=== PATIENT | female | born 1965 | race Two or more races ===

== ENCOUNTER 2016-03-27 18:01 | Emergency (ER) | payer SELFPAY ==
[~2016-03-27] VITALS: Ht 157.5 cm; Wt 86.2 kg
[2016-03-27] MEDS ORDERED: ATIVAN2 MG ORAL (18:13)
[2016-03-27] MEDS ORDERED: Dicyclomine HCl 10mg/5ml oral soln ORAL ONE (18:30)
[2016-03-27] MEDS ORDERED: Mylanta II UD 30ml ORAL ONE (18:30)
[2016-03-27] MEDS ORDERED: Metoclopramide 10mg/2ml Inj IVP ONE (18:30)
[2016-03-27] MEDS ORDERED: Lidocaine 2% Visc 15ml soln ORAL ONE (18:30)
[2016-03-27] MEDS ORDERED: Morphine Sulfate 2mg/ml Inj IVP ONE (18:30)
--- NOTE | 2016-03-27 19:06 | Emergency Room Report ---
History of Present Illness General Chief Complaint: Abdominal Pain Source: Patient Present Illness HPI 50-year-old female complains of abdominal pain for 2 days. Associated symptoms include nausea, vomiting, bloating, and epigastric pain. Patient states that she was eating yogurt just prior to the onset of symptoms which began approximately one to 2 hours after eating her food. States that her recent pain became exacerbated over the past 1 hour and is currently 9/10 and located in epigastric region w/o radiation. Patient states that there are no provoking or relieving factors has not tried any home medications. Patient has history of cholecystectomy in the past and a but no recent surgeries. Patient denies any trauma or flulike symptoms. Denies any current f/c/d, back pain, neck pain, hx of hernia, DM, GERD, ETOH use, photophobia, phonophobia, CP , SOB or headache. Allergies: Coded Allergies: No Known Allergies (Unverified , 03/27/16) Patient History Limited by: language barrier Past Medical History: see triage record Past Surgical History: bridger, Pertinent Family History: none Now: No : 5 Para: 5 Immunizations: UTD Reviewed Nursing Documentation: PMH: Agreed, PSxH: Agreed Nursing Documentation-PMH Past Medical History: No Stated History Review of Systems All Other Systems: negative except mentioned in HPI Physical Exam Vital Signs Date Time Temp Pulse Resp B/P Pulse Ox O2 Delivery O2 Flow Rate FiO2 03/27/16 18:08 98.1 64 16 166/82 100 Room Air Sp02 EP Interpretation: reviewed, normal General Appearance: alert, GCS 15, non-toxic, obese, other - obvious pain Head: normocephalic, atraumatic Eyes: bilateral eye PERRL, bilateral eye normal inspection ENT: hearing grossly normal, normal pharynx, no angioedema, normal voice Neck: full range of motion, supple/symm/no masses Respiratory: chest non-tender, lungs clear, normal breath sounds, speaking full sentences Cardiovascular #1: regular rate, rhythm, no edema Gastrointestinal: soft, non-distended, no guarding, no rebound, abnormal bowel sounds - hyperactive, tenderness - RUQ and epigastric, overweight Rectal: deferred Genitourinary: no CVA tenderness Musculoskeletal: back normal, gait/station normal, normal range of motion, non- tender Neurologic: alert, oriented x3, responsive, motor strength/tone normal, sensory intact, speech normal Psychiatric: judgement/insight normal, memory normal, mood/affect normal, no suicidal/homicidal ideation Skin: normal color, no rash, warm/dry, well hydrated Lymphatic: no adenopathy Medical Decision Making PA Attestation Dr. Bain is my supervising physician with whom patient management has been discussed with. Diagnostic Impression: Primary Impression: Epigastric abdominal pain ER Course Pt. presents to the ED c/o abdominal pain Ddx considered but are not limited to appendicitis, diverticulitis, gastroenteritis, abdominal hernia, pancreatitis, cholecystitis, nephrolithiasis , and ovarian torsion. Vital signs: are WNL, pt. is afebrile H&PE are most consistent with epigastric pain ORDERS: CBC, CMP, UA, Lipase ED INTERVENTIONS: Morhpine 2mg, 1L NS Bolus, GI Cocktail, . DISCHARGE: At this time pt. is stable for d/c to home. Patient states she is currently asymptomatic after ED interventions. Will provide printed patient care instructions, and any necessary prescriptions. Care plan and follow up instructions have been discussed with the patient prior to discharge. Laboratory Tests Test 03/27/16 18:34 White Blood Count 8.3 K/UL (4.8-10.8) Red Blood Count 5.15 M/UL (4.20-5.40) Hemoglobin 14.1 G/DL (12.0-16.0) Hematocrit 44.5 % (37.0-47.0) Mean Corpuscular Volume 86 FL (80-99) Mean Corpuscular Hemoglobin 27.3 PG (27.0-31.0) Mean Corpuscular Hemoglobin Concent 31.7 G/DL (32.0-36.0) L Red Cell Distribution Width 13.7 % (11.6-14.8) Platelet Count 292 K/UL (150-450) Mean Platelet Volume 6.6 FL (6.5-10.1) Neutrophils (%) (Auto) 61.9 % (45.0-75.0) Lymphocytes (%) (Auto) 29.5 % (20.0-45.0) Monocytes (%) (Auto) 6.9 % (1.0-10.0) Eosinophils (%) (Auto) 1.3 % (0.0-3.0) Basophils (%) (Auto) 0.5 % (0.0-2.0) Urine Color Yellow Urine Appearance Clear Urine pH 5 (4.5-8.0) Urine Specific [place] 1.030 (1.005-1.035) Urine Protein Negative (NEGATIVE) Urine Glucose (UA) Negative (NEGATIVE) Urine Ketones Negative (NEGATIVE) Urine Occult Blood 3+ (NEGATIVE) H Urine Nitrite Negative (NEGATIVE) Urine Bilirubin Negative (NEGATIVE) Urine Urobilinogen Normal MG/DL (0.0-1.0) Urine Leukocyte Esterase Negative (NEGATIVE) Urine RBC 5-10 /HPF (0 - 2) H Urine WBC 0 /HPF (0 - 2) Urine Squamous Epithelial Cells Many /LPF (NONE/OCC) H Urine Bacteria Few /HPF (NONE) Sodium Level 143 mEQ/L (135-145) Potassium Level 3.8 mEQ/L (3.4-4.9) Chloride Level 100 mEQ/L (98-107) Carbon Dioxide Level 28 mEQ/L (20-30) Anion Gap 15 (5-15) Blood Urea Nitrogen 16 mg/dL (7-23) Creatinine 0.9 mg/dL (0.5-0.9) Estimate Glomerular Filtration Rate > 60 mL/min (>60) Glucose Level 93 mg/dL (74-106) Calcium Level 9.3 mg/dL (8.6-10.2) Total Bilirubin < 0.2 mg/dL (0.0-1.2) Aspartate Amino Transferase (AST) 17 U/L (5-40) Alanine Aminotransferase (ALT) 15 U/L (3-33) Alkaline Phosphatase 63 U/L (35-104) Total Protein 7.1 g/dL (6.6-8.7) Albumin 4.0 g/dL (3.5-5.2) Globulin 3.1 g/dL Albumin/Globulin Ratio 1.2 (1.0-2.7) Lipase 35 U/L (< 60) Last Vital Signs Date Time Temp Pulse Resp B/P Pulse Ox O2 Delivery O2 Flow Rate FiO2 03/27/16 18:08 98.1 64 16 166/82 100 Room Air Status: improved Disposition: HOME, SELF-CARE Condition: Improved Scripts Omeprazole Magnesium (PRILOSEC) 10 Mg Suspdr.pkt 10 MG ORAL DAILY for 14 Days, #14 CAP Prov: TIFFANY BEVERLY.A. 03/27/16 Dicyclomine Hcl* (BENTYL*) 10 Mg Capsule 10 MG ORAL FOUR TIMES A DAY for 10 Days, #40 CAP Prov: TIFFANY BEVERLY P.A. 03/27/16 Famotidine (PEPCID) 40 Mg Tablet 40 MG PO QHS, #14 TAB 0 Refills Prov: TIFFANY BEVERLY.A. 03/27/16 Patient Instructions: Abdominal Pain, Adult Additional Instructions: Take medication as directed. Patient instructed to stay well hydrated and to use a liquid diet and then progress to soft bland diet as tolerated before reverting back to a regular diet. Patient Education was given to the patient. Patient advised if irreretractible pain, rectal bleeding, or no BM to go to ER immediately. TIFFANY BEVERLY Mar 27, 2016 19:06
[2016-03-27 19:11] LABS: MEAN CORPUSCULAR HEMOGLOBIN 27.3 PG (27.0-31.0); MEAN CORPUSCULAR HGB CONC 31.7 G/DL (32.0-36.0); MEAN CORPUSCULAR VOLUME 86 FL (80-99); MEAN PLATELET VOLUME 6.6 FL (6.5-10.1); PLATELET COUNT 292 K/UL (150-450); RED BLOOD COUNT 5.15 M/UL (4.20-5.40); RED CELL DISTRIBUTION WIDTH 13.7 % (11.6-14.8); WHITE BLOOD COUNT 8.3 K/UL (4.8-10.8)
[2016-03-27 19:12] LABS: BASOPHILS % (AUTO) 0.5 % (0.0-2.0); EOSINOPHILS % (AUTO) 1.3 % (0.0-3.0); LYMPHOCYTES % (AUTO) 29.5 % (20.0-45.0); MONOCYTES % (AUTO) 6.9 % (1.0-10.0); NEUTROPHILS % (AUTO) 61.9 % (45.0-75.0)
[2016-03-27 19:13] LABS: ALANINE AMINOTRANSFERASE 15 U/L (3-33); ALBUMIN/GLOBULIN RATIO 1.2 (1.0-2.7); ANION GAP 15 (5-15); ASPARTATE AMINO TRANSFERASE 17 U/L (5-40); CALCIUM 9.3 mg/dL (8.6-10.2); CARBON DIOXIDE 28 mEQ/L (20-30); CHLORIDE 100 mEQ/L (98-107); CREATININE 0.9 mg/dL (0.5-0.9); GLOMERULAR FILTRATION RATE > 60 mL/min (>60); HEMOLYSIS 7; LIPASE 35 U/L (< 60); POTASSIUM 3.8 mEQ/L (3.4-4.9); SODIUM 143 mEQ/L (135-145); TOTAL PROTEIN 7.1 g/dL (6.6-8.7)
[2016-03-27 19:15] LABS: APPEARANCE,URINE CLEAR; KETONES,URINE NEGATIVE (NEGATIVE); LEUKOCYTE ESTERASE ,URINE NEGATIVE (NEGATIVE); NITRITE,URINE NEGATIVE (NEGATIVE); PH,URINE 5 (4.5-8.0); PROTEIN,URINE NEGATIVE (NEGATIVE); UROBILINOGEN,URINE NORMAL MG/DL (0.0-1.0)
[2016-03-27 19:19] VITALS: BP 157/85
[2016-03-27 19:37] LABS: BACTERIA,URINE FEW /HPF; SQUAMOUS EPITHELIAL CELL,UR MANY /LPF (NONE/OCC); WBC,URINE 0 /HPF (0 - 2)
[2016-03-27] MEDS ORDERED: BENTYL10 MG ORAL (19:44)
[2016-03-27] MEDS ORDERED: PEPCID40 MG PO (19:44)
[2016-03-27] MEDS ORDERED: PRILOSEC10 M1 ORAL (19:44)
[2016-03-27 20:05] VITALS: BP 157/85
== END 2016-03-27 20:05 | disposition home or self-care (01) ==
LOC: EMR 18:26
DX: R10.13 Epigastric pain (principal); Z90.49 Acquired absence of other specified parts of digestive tract; E11.9 Type 2 diabetes mellitus without complications; K21.9 Gastro-esophageal reflux disease without esophagitis; F10.10 Alcohol abuse, uncomplicated
CPT/HCPCS: 36415; 80053; 81003; 83690; 85025; 96360; 96374; 96375; 99284; J2270; J2765